=== PATIENT | female | born 1970 | race Caucasian/White ===

== ENCOUNTER 2018-04-27 13:56 | Emergency (ER) | payer OTHER, SELFPAY ==
[2018-04-27 13:57] VITALS: BP 138/101; PULSE 112; RESP 16; TEMP 36.8; O2SAT 99; BMI 22.7
[2018-04-27 14:52] LABS: Bacteria 0 SEEN /hpf (None Seen); Mucous, Urine 0 SEEN /hpf (<or=2+)
[2018-04-27 15:05] LABS: Color, Urine Yellow (Yellow); Glucose, Dipstick Normal (Normal); Ketone-Dipstick Negative (Negative); Leukocyte Esterase-Dipstick 500 /ul (Negative); Nitrite-Dipstick Positive (Negative); Occult Blood-Urine 150 /ul (Negative); Protein-Dipstick 30 mg/dl (Negative); Urine Bilirubin Dipstick 3 mg/dL (Negative); Urine Clarity Sl. Cloudy (Clear); Urine Urobilinogen 4 mg/dl (Normal)
[2018-04-27] MEDS: HYDROcodone Bitartrate/Apap 5/325 Tablet PO (15:09)
[2018-04-27 15:28] LABS: White Blood Cells 10-25 SEEN /hpf (0-5)
[2018-04-27 15:29] LABS: Red Blood Cells-Urine 0-5 SEEN /hpf (0-5); Squamous Epithelial Cells - UA 0-5 SEEN /hpf (5-10)
--- NOTE | 2018-04-27 16:22 | ED.VISSUMM ---
- ER Visit Summary Date of Service: 04/27/18 Chief Complaint: Dysuria History of Present Illness: The patient is a 48 F who presents with dysuria, suprapubic pain and now some flank pain associated with some sweats. No fever. No chest pain or shortness of breath. She has had urinary tract infections in the past this feels very similar. Patient denies any diarrhea or constipation. No vaginal discharge. Physical Examination: Not appear in acute distress. She does not appear toxic. Moist mucous membranes, no obvious facial deformity No C-spine tenderness supple neck. Regular rate and rhythm without any obvious murmurs Clear lungs bilaterally speaking in full sentences without any obvious respiratory distress Abdomen soft with suprapubic pain and slight flank pain. Moves all extremities without any difficulty or pain. Skin does not show any obvious rashes or lesions, no trauma. Alert oriented ?3 with no gross focal deficit Emergency Department Course and Treatment: Urinalysis is positive. She appears well she is not febrile, I believe she can have outpatient treatment. I will treat her with Cipro since she is allergic to Bactrim, I will culture her urine. Disposition: Discharge stable condition Impression: Urinary tract infection This note was generated with [employer] dictation software. It may contain incorrect words, spelling, and punctuation that were not noted in review of the chart prior to signing ED Disposition - Plan for ED Patient: Disposition: Home or Assisted Living Chief Complaint: Abd Pain Instructions: ED UTI Cystitis Female Prescriptions: Naproxen [Naprosyn] 500 mg PO BID PRN #20 tab Ciprofloxacin [Cipro] 500 mg PO BID #19 tab Referrals: Care Physician,No Primary [Primary Care Provider] -
--- NOTE | 2018-04-27 16:26 | ED.DCSUM_ITS ---
- ER Visit Summary Date of Service: 04/27/18 Chief Complaint: Dysuria History of Present Illness: The patient is a 48 F who presents with dysuria, suprapubic pain and now some flank pain associated with some sweats. No fever. No chest pain or shortness of breath. She has had urinary tract infections in t he past this feels very similar. Patient denies any diarrhea or constipation. No vaginal discharge. Physical Examination: Not appear in acute distress. She does not appear toxic. Moist mucous membranes, no obvious facial deformity No C-spine tenderness supple neck. Regular rate and rhythm without any obvious murmurs Clear lungs bilaterally speaking in full sentences without any obvious respiratory distress Abdomen soft with suprapubic pain and slight flank pain. Moves all extremities without any difficulty or pain. Skin does not show any obvious rashes or lesions, no trauma. Alert oriented ?3 with no gross focal deficit Emergency Department Course and Treatment: Urinalysis is positive. She appears well she is not febrile, I believe she can have outpatient treatment. I will treat her with Cipro since she is allergic to Bactrim, I will culture her urine. Disposition: Discharge stable condition Impression: Urinary tract infection This note was generated with [employer] dictation software. It may contain incorrect words, spelling, and punctuation that were not noted in review of the chart prior to signing ED Disposition - Plan for ED Patient: Disposition: Home or Assisted Living Chief Complaint: Abd Pain Instructions: ED UTI Cystitis Female Prescriptions: Naproxen [Naprosyn] 500 mg PO BID PRN #20 tab Ciprofloxacin [Cipro] 500 mg PO BID #19 tab Referrals: Care Physician,No Primary [Primary Care Provider] -
--- NOTE | 2018-04-27 16:29 | ED.DEP ---
ED Disposition - Plan for ED Patient: Disposition: Home or Assisted Living Chief Complaint: Abd Pain Instructions: ED UTI Cystitis Female Prescriptions: Naproxen [Naprosyn] 500 mg PO BID PRN #20 tab Ciprofloxacin [Cipro] 500 mg PO BID #19 tab Referrals: Care Physician,No Primary [Primary Care Provider] -
[2018-04-27 16:39] VITALS: BP 139/76; PULSE 109; RESP 18; O2SAT 97
[2018-04-27] MEDS: Ciprofloxacin 250 MG Tablet 500 MG PO (16:42)
== END 2018-04-27 17:06 | disposition home or self-care (01) ==
PROVIDERS: Emergency Provider Emergency Medicine
DX: N39.0 Urinary tract infection, site not specified (principal); I10 Essential (primary) hypertension; Z87.440 Personal history of urinary (tract) infections; Z79.899 Other long term (current) drug therapy
CPT/HCPCS: 81001; 87086; 87088; 99283